=== PATIENT | male | born 1995 | race Caucasian/White ===

== ENCOUNTER 2019-07-04 08:15 | Inpatient (IN) ==
[2019-07-04] MEDS ORDERED: ALBUT/IPRATROP 3MG/0.5MG NEB 3 ML VIAL NEB ONE (08:28)
[2019-07-04] MEDS ORDERED: ACETAMINOPHEN 1,000 MG/100 ML VIAL IV STA (08:31)
[2019-07-04] MEDS ORDERED: ONDANSETRON INJ 2 MG/ML 2 ML VIAL IV STA (08:31)
[2019-07-04] MEDS ORDERED: SODIUM CHLORIDE 0.9% 1000ML 1,000 ML IV ONE (08:31)
[2019-07-04 08:43] LABS: Basophils # (auto) 0.01 K/uL (0-0.2); Basophils % (auto) 0.1 %; Eosinophils # (auto) 0.01 K/uL (0-0.5); Eosinophils % (auto) 0.1 %; Hemoglobin 13.5 g/dL (14.0-18.0); Immature Granulocytes # (auto) 0.02 K/uL (0.00-0.02); Immature Granulocytes % (auto) 0.3 %; Lymphocytes # (auto) 0.28 K/uL (1.2-3.4); Lymphocytes % (auto) 4.1 %; Mean Corpuscular Hgb Conc 34.6 g/dL (32-36); Mean Corpuscular Volume 86.7 fL (80-100); Mean Platelet Volume 9.3 fL (7.4-10.4); Monocytes # (auto) 0.32 K/uL (0.11-0.59); Monocytes % (auto) 4.7 %; Neutrophils # (auto) 6.13 K/uL (1.4-6.5); Neutrophils % (auto) 90.7 %; Platelet Count 204 K/uL (130-400); RDW Coefficient of Variation 12.8 % (11.5-14.5); RDW Standard Deviation 41.1 fL (36.4-46.3); White Blood Count 6.77 K/uL (4.8-10.8)
[2019-07-04 08:58] LABS: BUN Creatinine Ratio 7.6 (10-20); Calcium 8.9 mg/dl (8.5-10.1); Creatinine Clr Calc Pharmacy 127.6 ml/min; Est GFR (African American) 124.6; Est GFR (Non-African American) 107.5; Potassium 3.9 mmol/L (3.5-5.1)
[2019-07-04 09:01] LABS: Albumin Globulin Ratio 0.8 (0.9-2); Bilirubin,Total 0.4 mg/dl (0.2-1); Globulin 3.9 gm/dl (2.5-4.0); Total Protein 6.9 gm/dl (6.4-8.2)
--- NOTE | 2019-07-04 09:10 | Emergency Department Note ---
History of Present Illness General Chief complaint: Shortness of Breath/Dyspnea Stated complaint: TROUBLE BREATHING - WAS HERE YESTERDAY Time Seen by Provider: 07/04/19 08:23 History of Present Illness Maximum Pain Intensity: 4 This 24-year-old male presents the ER for increased shortness of breath. The patient was seen here yesterday and was diagnosed with pneumonia. He is currently taking doxycycline 100 mg twice daily as well as cefdinir 300 mg twice daily for the pneumonia. The patient is also using his albuterol inhaler 2 puffs every 4 hours but he states it is not helping for the shortness of breath. The patient's last dose of Motrin was last evening at 8 PM. The patient still complains of fever although he has not taken his temperature. The patient does admit to history of asthma as a child and as an adult has only needed to use his albuterol inhaler very infrequently. The patient denies tobacco use or vaping. Home Medications Home Medications Medication Instructions Recorded Confirmed Type fexofenadine [Marisol Allergy] 180 mg PO DAILY PRN #0 04/13/14 07/04/19 History acetaminophen [Tylenol Extra 1,000 mg PO Q6H PRN 07/03/19 07/04/19 History Strength] albuterol sulfate 2 puff INHALATION Q4H PRN 07/03/19 07/04/19 History azithromycin 250 mg PO Q12H 07/03/19 07/04/19 History cefdinir 300 mg PO BID 10 Days #20 cap 07/03/19 07/04/19 Rx doxycycline hyclate 100 mg PO BID 10 Days #20 tab 07/03/19 07/04/19 Rx ibuprofen 600 mg PO Q6H PRN 07/03/19 07/04/19 History sertraline 100 mg PO QAM 07/03/19 07/04/19 History Allergies Allergy/AdvReac Type Severity Reaction Status Date / Time animal dander Allergy Unknown . Verified 07/04/19 09:12 pollen extracts Allergy Unknown . Verified 07/04/19 09:12 Past Med/Surg History Medical History (Updated 07/04/19 @ 10:32 by Adriel Harding) Allergic rhinitis Allergy-induced asthma Depression H/O wisdom tooth extraction Mild intermittent asthma OCD (obsessive compulsive disorder) Pneumonia Surgical History (Updated 07/04/19 @ 09:57 by Adriel Harding) H/O adenoidectomy History of lumbar laminectomy age 12 - 2 levels Family History (Updated 07/04/19 @ 09:58 by Adriel Harding) Sister Asthma Father Osteoporosis Social History (Updated 07/04/19 @ 09:59 by Adriel Harding) Preferred Language: Czech Communication Ability: Effective 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 Beliefs That Will Affect Care: None marital status: Single marital status details: but has out of town significant other Current Living Situation: Alone Current Living Situation Comment: lives in apartment in [place] current occupation: Grad Student - [employer] Other Information That Helps Us Care for You: No Feels Safe at Home: Yes Safety Concerns: Feels Safe At This Time Smoking Status: Never smoker Do You Dip or Chew Tobacco: No ; Second Hand Exposure: No ; Tobacco Cessation Education Requested by Patient: No Hx Alcohol Use: No Hx Substance Use: No Review of Systems A total of 10 systems reviewed and were otherwise negative Physical Exam Vital Signs Vital Signs - 24 hr 07/04/19 08:19 07/04/19 08:47 07/04/19 08:50 Temperature 38.1 C H Temperature Source Oral Pulse Rate 130 H 119 H 120 H Pulse Rate from SpO2 Sensor 119 H 155 H Respiratory Rate 26 H 26 H 34 H Respiratory Effort / Characteristics Respiratory Depth Respiratory Pattern Blood Pressure 114/59 L 133/68 Blood Pressure Mean 77 75 Pulse Oximetry 94 94 94 Oxygen Delivery Method Room Air Sepsis Recent Fever Within 48 Hours Yes Sepsis New/Unexplained Change in Mental Status No Sepsis Action Taken by Nursing No Action Required 07/04/19 08:57 07/04/19 09:00 07/04/19 09:01 Temperature Temperature Source Pulse Rate 115 H 115 H Pulse Rate from SpO2 Sensor 115 H 114 H Respiratory Rate 17 11 L Respiratory Effort / Characteristics Non-Labored Spontaneous Respiratory Depth Normal Respiratory Pattern Regular Blood Pressure 116/69 Blood Pressure Mean 74 Pulse Oximetry 95 94 93 Oxygen Delivery Method Room Air Sepsis Recent Fever Within 48 Hours Sepsis New/Unexplained Change in Mental Status Sepsis Action Taken by Nursing 07/04/19 09:05 07/04/19 09:10 Temperature 38.6 C H Temperature Source Oral Pulse Rate Pulse Rate from SpO2 Sensor Respiratory Rate 20 Respiratory Effort / Characteristics Non-Labored Spontaneous Respiratory Depth Respiratory Pattern Blood Pressure Blood Pressure Mean Pulse Oximetry 92 Oxygen Delivery Method Room Air Sepsis Recent Fever Within 48 Hours Sepsis New/Unexplained Change in Mental Status Sepsis Action Taken by Nursing PHYSICAL EXAM: Vital Signs were reviewed: Reviewed Nurse's notes and agree. Oxygen saturation is 92 % on room air which is slightly low. GENERAL: 24-year-old male appears in no acute distress. MENTAL STATUS: Alert, oriented, coherent. EARS: Canals clear. TMs good light reflex, no erythema or fluid level noted. NOSE: Nasal mucosa with moderate erythema engorgement. PHARYNX: Moderate erythema, no edema noted. No exudate noted. Airway is adequate. NECK: Supple, non-tender. No lymphadenopathy noted. LUNGS: Patient has crackles at both bases but extends up to the mid left lung posteriorly. No wheezes noted. Good air exchange noted. SKIN: No rashes noted. Course Administered Medications Discontinued Medications Albuterol (Duoneb) 12 ml NEB ONE ONE Stop: 07/04/19 08:29 Last Admin: 07/04/19 09:05 Dose: 12 ml Documented by: [id number] Ceftriaxone Sodium (Rocephin) Confirm Administered Dose 2,000 mg IV .STK-MED ONE Stop: 07/04/19 10:34 Last Admin: 07/04/19 10:47 Dose: 2,000 mg Documented by: [id number] Sodium Chloride (Nss 1000ml) 1,000 mls @ 999 mls/hr IV .Q1H1M ONE Stop: 07/04/19 09:31 Last Infusion: 07/04/19 10:16 Dose: 0 mls/hr Documented by: [id number] Admin: 07/04/19 08:48 Dose: 999 mls/hr Documented by: [id number] Acetaminophen (Ofirmev) 1,000 mg in 100 mls @ 400 mls/hr IV NOW STA Stop: 07/04/19 08:45 Last Infusion: 07/04/19 10:16 Dose: 0 mls/hr Documented by: [id number] Admin: 07/04/19 08:49 Dose: 400 mls/hr Documented by: [id number] Methylprednisolone 60 mg/ (Syringe) 1.96 mls @ 1.5 mls/min IV NOW STA Stop: 07/04/19 09:18 Last Admin: 07/04/19 10:36 Dose: Not Given Documented by: [id number] Methylprednisolone (Solumedrol) Confirm Administered Dose 125 mg .ROUTE .STK-MED ONE Stop: 07/04/19 10:21 Last Admin: 07/04/19 10:24 Dose: 60 mg Documented by: [id number] Ondansetron HCl (Zofran) 4 mg IV NOW STA Stop: 07/04/19 08:32 Last Admin: 07/04/19 08:48 Dose: 4 mg Documented by: [id number] Medical Decision Making Differential Diagnosis Pneumonia, asthma exacerbation, sepsis Medical Records Attestation: I reviewed the patient's medical records. Home Medications Current Medication List: was personally reviewed by me Laboratory Data Attestation: I reviewed the patient's lab results. Result diagrams: 07/04/19 08:30 07/04/19 08:30 Lab Results 07/04/19 07/04/19 07/04/19 Range/Units 08:30 08:30 08:30 WBC 6.77 (4.8-10.8) K/uL RBC 4.50 L (4.7-6.1) M/uL Hgb 13.5 L (14.0-18.0) g/dL Hct 39.0 L (42-52) % MCV 86.7 (80-100) fL MCH 30.0 (25-34) pg MCHC 34.6 (32-36) g/dL RDW Std Deviation 41.1 (36.4-46.3) fL RDW Coeff of Stephanie 12.8 (11.5-14.5) % Plt Count 204 (130-400) K/uL MPV 9.3 (7.4-10.4) fL Immature Gran % (Auto) 0.3 % Neut % (Auto) 90.7 % Lymph % (Auto) 4.1 % [place] % (Auto) 4.7 % Eos % (Auto) 0.1 % Baso % (Auto) 0.1 % Immature Gran # (Auto) 0.02 (0.00-0.02) K/uL Neut # (Auto) 6.13 (1.4-6.5) K/uL Lymph # (Auto) 0.28 L (1.2-3.4) K/uL [place] # (Auto) 0.32 (0.11-0.59) K/uL Eos # (Auto) 0.01 (0-0.5) K/uL Baso # (Auto) 0.01 (0-0.2) K/uL Sodium 137 (136-145) mmol/L Potassium 3.9 (3.5-5.1) mmol/L Chloride 106 (98-107) mmol/L Carbon Dioxide 25 (21-32) mmol/L Anion Gap 6.0 (3-11) BUN 8 (7-18) mg/dl Creatinine 0.98 (0.6-1.4) mg/dl Est Cr Clr Drug Dosing 127.6 ml/min Est GFR ( Amer) 124.6 Est GFR (Non-Af Amer) 107.5 BUN/Creatinine Ratio 7.6 L (10-20) Glucose 164 H (70-99) mg/dl Lactate 1.9 (0.4-2.0) mmol/L Calcium 8.9 (8.5-10.1) mg/dl Total Bilirubin 0.4 (0.2-1) mg/dl AST 13 L (15-37) U/L ALT 20 (12-78) U/L Alkaline Phosphatase 78 (45-117) U/L Total Protein 6.9 (6.4-8.2) gm/dl Albumin 3.0 L (3.4-5.0) gm/dl Globulin 3.9 (2.5-4.0) gm/dl Albumin/Globulin Ratio 0.8 L (0.9-2) Imaging Data Attestation: I personally reviewed and interpreted this imaging study as follows: My Impression: Worsening bibasilar infiltrates Radiologist's Impression: XR chest 2V PA/lateral CLINICAL HISTORY: Increased shortness of breath/pneumonia dyspnea COMPARISON STUDY: 07/03/2019 FINDINGS: Diffuse parenchymal infiltrate left lung base. This is progressive. Subsegmental atelectasis right midlung, with right basilar infiltrate slightly increased as well. Pulmonary apices are clear. IMPRESSION: Mildly progressive bibasilar parenchymal infiltrative change. The above report was generated using voice recognition software. It may contain grammatical, syntax or spelling errors. Electronically signed by: Fabiano Elizondo M.D. 07/04/2019 10:53 AM Blood Pressure Blood Pressure Findings: Low blood pressure MDM Narrative The patient was evaluated. The patch EMR was reviewed from yesterday. Blood cultures are still pending. Influenza was negative. White count yesterday was 7.63 and lactate was 1.0. IV access was obtained. Patient was given 1 L normal saline wide open. He was given Tylenol 1 g IV for fever. He was also given Zofran 4 mg IV push for nausea. CBC and differential and renal profile and lactate was ordered. White count is slightly lower than yesterday at 6.77 and lactate is slightly higher at 1.9 but still within normal range. The patient was given 1 hour DuoNeb. Chest x-ray was ordered interpreted by the radiologist and myself as above. The patient was given Solu-Medrol 60 mg IV. Treatment plan was discussed with Dr. Cruz who agrees with treatment plan. The hospitalist was consulted for admission due to failed outpatient treatment for his pneumonia. Impression & Plan Pneumonia Discharge Plan Visit Data Chief Complaint: Shortness of Breath/Dyspnea Stated Complaint: TROUBLE BREATHING - WAS HERE YESTERDAY ED Provider: Alonzo Cruz ED Midlevel Provider: Katarzyna Elizondo Discharge Problem: Pneumonia Patient Disposition: Being Evaluated by Hospitalist Condition: Good Forms Stand Alone Forms: My [facility], Important Visit Information Prescriptions Prescriptions: No Action fexofenadine [Marisol Allergy] 180 mg Tablet 180 mg PO DAILY PRN (Reason: qam) Qty: 0 RF: 0 azithromycin 250 mg tablet 250 mg PO Q12H RF: 0 sertraline 100 mg tablet 100 mg PO QAM RF: 0 acetaminophen [Tylenol Extra Strength] 500 mg Tablet 1,000 mg PO Q6H PRN (Reason: fever/pain) RF: 0 ibuprofen 200 mg Tablet 600 mg PO Q6H PRN (Reason: fever/pain) RF: 0 albuterol sulfate 90 mcg/actuation HFA aerosol inhaler 2 puff INHALATION Q4H PRN (Reason: Shortness Of Breath) RF: 0 cefdinir 300 mg capsule 300 mg PO BID 10 Days Qty: 20 RF: 0 doxycycline hyclate 100 mg tablet 100 mg PO BID 10 Days Qty: 20 RF: 0 Referrals Referrals: [facility] [Primary Care Provider] - Discharge Problem: Pneumonia Qualifiers: Pneumonia type: due to unspecified organism Laterality: bilateral Lung location: lower lobe of lung Qualified Code(s): J18.1 - Lobar pneumonia, unspecified organism
[2019-07-04] MEDS ORDERED: methylPREDNISolone 60 MG in SYRINGE 1 ML IV STA (09:17)
--- NOTE | 2019-07-04 09:42 | History & Physical Report ---
Date of Service July 04, 2019 Assessment & Plan (1) Acute respiratory distress: 2nd to combination of b/l pneumonia and asthma exacerbation. Improved, s/p hour-long duoneb in the ER. Treat pneumonia with rocephin/doxycycline. Treat asthma flare with IV steroids, nebs, etc. (2) Asthma exacerbation: Mod-severe exacerbation. Solumedrol 40mg IV q8h. Incentive spirometry. Flutter valve. Duonebs q6h. Mucinex 1200mg BID. Check flu PCR to be complete (had flu Ag test yesterday but many false negatives with such). (3) Pneumonia: Community-acquired. B/l; however LLL is much worse than the RLL clinically & radiographically. Change antibiotics to Rocephin 2gm IV daily along with doxy 100mg BID for atypical coverage. Blood cx's from 07/03 negative thus far. Send sputum culture. Good pulmonary toilet. Treat asthma exacerbation. Observe carefully for development of parapneumonic effusion. (4) Allergic rhinitis: Marisol prn. (5) Depression: Cont zoloft 200mg daily. (6) OCD (obsessive compulsive disorder): Cont zoloft 200mg daily. (7) Hemoptysis: 1 episode in the ER - scant amount - maroon-colored. Combination of bronchial irritation from asthma flare and the pneumonia could cause such. Monitor for recurrence. (8) Hyperglycemia: Glucose of 164 upon presentation today. In light of obesity will check hemoglobin a1c in am. (9) DVT prophylaxis: Low risk. Chemical DVT proph deferred. Hydrate with NS w/ KCL overnight. Admit to telemetry due to tachycardia (which is most likely from albuterol). History of Present Illness Chief Complaint: shortness of breath Primary Care Provider: [facility] 24yo male with history of long-standing asthma and allergies who presented to [facility] ER this morning with c/o worsening shortness of breath that began overnight, chest tightness, some cough, orthopnea, and ongoing fevers dating back to Friday of this week. He took multiple puffs of his albuterol MDI overnight without any relief of his pulmonary symptoms. In addition to the fever he has also had URI type symptoms (runny nose, minimal cough, etc) along with chills since Friday. Appetite has been poor. He was seen at [facility] on Friday of this week, diagnosed with clinical pneumonia (no chest x-ray done), and he was prescribed a z-pack. He continued with tylenol and motrin alternating for ongoing fever. Despite the z-pack he never felt better. His fevers continued. Because of not feeling better he presented to the [facility] ER yesterday am. He had a chest x-ray yesterday am confirming b/l pneumonia. His z-pack was changed to cefdinir and doxycycline. Travel - about 2 weeks ago he went to [place]. Multiple sick contacts at [facility] (he attends a club and multiple members with URIs of late). To his knowledge he has never been hospitalized for his asthma. He has had no steroids this week for his asthma. Allergies Allergy/AdvReac Type Severity Reaction Status Date / Time animal dander Allergy Unknown . Verified 07/04/19 09:12 pollen extracts Allergy Unknown . Verified 07/04/19 09:12 Home Medications Home Medications Medication Instructions Recorded Confirmed Type fexofenadine [Marisol Allergy] 180 mg PO DAILY PRN #0 04/13/14 07/04/19 History acetaminophen [Tylenol Extra 1,000 mg PO Q6H PRN 07/03/19 07/04/19 History Strength] albuterol sulfate 2 puff INHALATION Q4H PRN 07/03/19 07/04/19 History azithromycin 250 mg PO Q12H 07/03/19 07/04/19 History cefdinir 300 mg PO BID 10 Days #20 cap 07/03/19 07/04/19 Rx doxycycline hyclate 100 mg PO BID 10 Days #20 tab 07/03/19 07/04/19 Rx ibuprofen 600 mg PO Q6H PRN 07/03/19 07/04/19 History sertraline 100 mg PO QAM 07/03/19 07/04/19 History Past Med/Surg History Medical History (Updated 07/04/19 @ 19:06 by Adriel Harding) Allergic rhinitis Allergy-induced asthma Depression H/O wisdom tooth extraction Mild intermittent asthma OCD (obsessive compulsive disorder) Pneumonia Surgical History (Updated 07/04/19 @ 09:57 by Adriel Harding) H/O adenoidectomy History of lumbar laminectomy age 12 - 2 levels Family History (Updated 07/04/19 @ 09:58 by Adriel Harding) Sister Asthma Father Osteoporosis Social History (Updated 07/04/19 @ 09:59 by Adriel Harding) Preferred Language: Czech Communication Ability: Effective 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 Beliefs That Will Affect Care: None marital status: Single marital status details: but has out of town significant other Current Living Situation: Alone Current Living Situation Comment: lives in apartment in [place] current occupation: Grad Student - Electrical engineering Other Information That Helps Us Care for You: No Feels Safe at Home: Yes Safety Concerns: Feels Safe At This Time Smoking Status: Never smoker Do You Dip or Chew Tobacco: No ; Second Hand Exposure: No ; Tobacco Cessation Education Requested by Patient: No Hx Alcohol Use: No Hx Substance Use: No Review of Systems Constitutional: + fever, + chills, + fatigue and + anorexia; no weight loss and no weight gain Eyes: no worsening vision Ear, Nose, Mouth, Throat: + dizziness, + nasal congestion and + sore throat Respiratory: + cough, + chest congestion, + dyspnea, + dyspnea on exertion, + sputum production and + wheezing Cardiovascular: as per Subjective / HPI, + dyspnea at rest and + dyspnea on exertion; no chest pain (but having tightness) Gastrointestinal: + nausea and + vomiting (x 48 hours); no abdominal pain and no diarrhea/loose stools Genitourinary: no dysuria Musculoskeletal: no joint pain and no myalgia Integumentary: no rash Neurologic: no loss of sensation Psychiatric: + depression (controlled with meds) Endocrine: no diabetes Hematologic / Lymphatic: no easy bleeding Allergy / Immunological: + seasonal rhinorrhea Physical Exam Constitutional: + acute distress (mild tachypnea, but can speak in complete sentences; occasional dyspnea) and + obese; no altered mental status Eyes: PERRL ENMT: Mouth: + oropharynx abnormality (mild erythema; no exudates) Neck: trachea midline, no thyromegaly Respiratory: + labored breathing (mild) and + tachypneic Auscultation: + diminished lung sounds (bases, worse on left), + rales (occasional - bases) and + wheezes (anteriorly) Cardiovascular: Rate/Rhythm: regular rhythm and + tachycardic Heart Sounds: normal S1 and normal S2; no murmur Vessels: posterior tibial pulses present and dorsalis pedis pulses present; no JVD Extremities: no edema Gastrointestinal (Abdomen): normal bowel sounds, soft, nontender, no hepatosplenomegaly Musculoskeletal: no cyanosis or clubbing, extremities motor strength 5/5 Skin: no rashes, warm and dry Neurologic: deep tendon reflexes 2+ bilaterally and moves all extremities; no focal motor deficits Psychiatric: A+Ox3, euthymic affect Lymphatic: + cervical lymphadenopathy (shotty lymph nodes b/l ) Results & Data Vital Signs (Past 12 Hours) Vital Signs Temp Pulse Resp BP Pulse Ox 07/04/19 09:10 38.6 C H 07/04/19 09:05 20 92 07/04/19 09:01 115 H 11 L 93 07/04/19 09:00 115 H 17 116/69 94 07/04/19 08:57 95 07/04/19 08:50 120 H 34 H 94 07/04/19 08:47 119 H 26 H 133/68 94 07/04/19 08:19 38.1 C H 130 H 26 H 114/59 L 94 Laboratory Results Laboratory Results - last 24 hr 07/04/19 07/04/19 07/04/19 08:30 08:30 08:30 WBC 6.77 RBC 4.50 L Hgb 13.5 L Hct 39.0 L MCV 86.7 MCH 30.0 MCHC 34.6 RDW Std Deviation 41.1 RDW Coeff of Stephanie 12.8 Plt Count 204 MPV 9.3 Immature Gran % (Auto) 0.3 Neut % (Auto) 90.7 Lymph % (Auto) 4.1 [place] % (Auto) 4.7 Eos % (Auto) 0.1 Baso % (Auto) 0.1 Immature Gran # (Auto) 0.02 Neut # (Auto) 6.13 Lymph # (Auto) 0.28 L [place] # (Auto) 0.32 Eos # (Auto) 0.01 Baso # (Auto) 0.01 Sodium 137 Potassium 3.9 Chloride 106 Carbon Dioxide 25 Anion Gap 6.0 BUN 8 Creatinine 0.98 Est Cr Clr Drug Dosing 127.6 Est GFR ( Amer) 124.6 Est GFR (Non-Af Amer) 107.5 BUN/Creatinine Ratio 7.6 L Glucose 164 H Lactate 1.9 Calcium 8.9 Total Bilirubin 0.4 AST 13 L ALT 20 Alkaline Phosphatase 78 Total Protein 6.9 Albumin 3.0 L Globulin 3.9 Albumin/Globulin Ratio 0.8 L Diagnostic Findings blood cx's from 07/03/19 negative to date EKG - sinus tach, no ST changes cxr - 07/03 - b/l pneumonia (RLL, LLL) Code Status & VTE Plan Code Status full VTE Prophylaxis Plan VTE Prophylaxis will be ordered: No PG Care Time/CCT Total # of Minutes Spent Total Time Spent with Patient: Total time spent is greater than 50% in coordination of care (as documented) at patient's floor/unit and/or counseling patient: (1) Asthma exacerbation Asthma persistence: intermittent Asthma severity: mild Qualified Code(s): J45.21 - Mild intermittent asthma with (acute) exacerbation (2) Depression Depression Type: other depression Qualified Code(s): F32.89 - Other specified depressive episodes (3) OCD (obsessive compulsive disorder) Obsessive-compulsive disorder type: unspecified Qualified Code(s): F42.9 - Obsessive-compulsive disorder, unspecified (4) Allergic rhinitis Allergic rhinitis seasonality: seasonal Allergic rhinitis trigger: other Qualified Code(s): J30.89 - Other allergic rhinitis (5) Pneumonia Laterality: bilateral Lung location: lower lobe of lung Pneumonia type: due to unspecified organism Qualified Code(s): J18.1 - Lobar pneumonia, unspecified organism
[2019-07-04] MEDS ORDERED: methylPREDNISolone 125 MG/2 ML VIAL ONE (10:20)
[2019-07-04] MEDS ORDERED: cefTRIAXone SODIUM 2,000 MG/70 ML BAG IV STA (10:20)
[2019-07-04] MEDS ORDERED: NON-FORMULARY MEDICATION (Doxycycline Hyclate 100 MG) PO SCH (10:30)
[2019-07-04] MEDS ORDERED: cefTRIAXone SODIUM 2000MG/70ML D5W IV ONE (10:33)
--- NOTE | 2019-07-04 10:56 | XRay Report ---
XR chest 2V PA/lateral CLINICAL HISTORY: Increased shortness of breath/pneumonia dyspnea COMPARISON STUDY: 07/03/2019 FINDINGS: Diffuse parenchymal infiltrate left lung base. This is progressive. Subsegmental atelectasis right midlung, with right basilar infiltrate slightly increased as well. Pul monary apices are clear. IMPRESSION: Mildly progressive bibasilar parenchymal infiltrative change. The above report was generated using voice recognition software. It may contain grammatical, syntax or spelling errors. Electronically signed by: Fabiano Elizondo M.D. 07/04/2019 10:53 AM
[2019-07-04 11:37] LABS: Influenza A virus by PCR Neg for Influ A (Neg); Influenza B virus by PCR Neg for Influ B (Neg)
[2019-07-04] MEDS ORDERED: ONDANSETRON INJ 2 MG/ML 2 ML VIAL IV PRN (12:10)
[2019-07-04] MEDS ORDERED: ALBUTEROL HFA 8 GM INHALER INH PRN (12:10)
[2019-07-04] MEDS ORDERED: ACETAMINOPHEN 500 MG TAB PO PRN (12:10)
[2019-07-04] MEDS ORDERED: FEXOFENADINE HCL 180 MG TAB PO PRN (12:10)
[2019-07-04] MEDS ORDERED: SERTRALINE HCL 100 MG TABLET PO SCH (12:10)
[2019-07-04] MEDS ORDERED: NSS + 20MEQ KCL 20 MEQ/1,000 ML BAG IV SCH (13:00)
[2019-07-04] MEDS: DOXYCYCLINE HYCLATE 100 MG CAP PO SCH ×2 (14:02→20:15)
[2019-07-04] MEDS: guaiFENesin 600 MG TABCR PO SCH ×2 (14:02→20:15)
[2019-07-04] MEDS ORDERED: Nursing to Pharmacy Communication ONE (14:40)
[2019-07-04] MEDS: ALBUT/IPRATROP 3MG/0.5MG NEB 3 ML VIAL NEB SCH ×3 (15:17→20:18)
[2019-07-04] MEDS: methylPREDNISolone 40 MG in SYRINGE 0 ML IV SCH (16:40)
[2019-07-05] MEDS: methylPREDNISolone 40 MG in SYRINGE 0 ML IV SCH ×2 (00:04→07:40)
[2019-07-05 07:16] LABS: BUN Creatinine Ratio 12.8 (10-20); Blood Urea Nitrogen 9 mg/dl (7-18); Calcium 9.3 mg/dl (8.5-10.1); Carbon Dioxide 26 mmol/L (21-32); Chloride 108 mmol/L (98-107); Creatinine Clr Calc Pharmacy 172.1 ml/min; Est GFR (African American) > 150.0; Est GFR (Non-African American) 129.8; Glucose 133 mg/dl (70-99); Potassium 4.2 mmol/L (3.5-5.1); Sodium 139 mmol/L (136-145)
[2019-07-05] MEDS: ALBUT/IPRATROP 3MG/0.5MG NEB 3 ML VIAL NEB SCH ×2 (07:33→10:58)
[2019-07-05] MEDS: DOXYCYCLINE HYCLATE 100 MG CAP PO SCH (07:40)
[2019-07-05] MEDS: guaiFENesin 600 MG TABCR PO SCH (07:40)
[2019-07-05 08:11] LABS: Estimated Average Glucose 108 mg/dl; Hemoglobin A1C 5.4 % (4.5-5.6)
[2019-07-05] MEDS ORDERED: cefTRIAXone SODIUM 2,000 MG in DEXTROSE 5% 50 ML IV SCH (09:00)
[2019-07-05] MEDS ORDERED: SERTRALINE HCL 100 MG TABLET PO SCH (09:00)
--- NOTE | 2019-07-05 10:14 | Discharge Summary ---
Date of Service July 05, 2019 Admission HPI Per Admitting Provider 24yo male with history of long-standing asthma and allergies who presented to [facility] ER this morning with c/o worsening shortness of breath that began overnight, chest tightness, some cough, orthopnea, and ongoing fevers dating back to Friday of this week. He took multiple puffs of his albuterol MDI overnight without any relief of his pulmonary symptoms. In addition to the fever he has also had URI type symptoms (runny nose, minimal cough, etc) along with chills since Friday. Appetite has been poor. He was seen at [facility] on Friday of this week, diagnosed with clinical pneumonia (no chest x-ray done), and he was prescribed a z-pack. He continued with tylenol and motrin alternating for ongoing fever. Despite the z-pack he never felt better. His fevers continued. Because of not feeling better he presented to the [facility] ER yesterday am. He had a chest x-ray yesterday am confirming b/l pneumonia. His z-pack was changed to cefdinir and doxycycline. Travel - about 2 weeks ago he went to [place]. Multiple sick contacts at [facility] (he attends a club and multiple members with URIs of late). To his knowledge he has never been hospitalized for his asthma. He has had no steroids this week for his asthma. Principal Diagnosis Community acquired pneumonia Discharge Exam Constitutional WD/WN, vitals as above Eyes PERRL, conjunctivae normal, anicteric sclerae ENMT external ear and nose normal, oropharynx normal Neck trachea midline, no thyromegaly Respiratory normal respiratory effort, lungs clear to auscultation Cardiovascular RRR, no murmur, no edema Gastrointestinal (Abdomen) normal bowel sounds, soft, nontender, no hepatosplenomegaly Musculoskeletal no cyanosis or clubbing, extremities motor strength 5/5 Skin no rashes, warm and dry Neurologic patellar DTR's 2+ bilat, sensation intact and PERRL, EOMI, accommodation nl, no face palsy, no dysarthria Psychiatric A+Ox3, euthymic affect Lymphatic no cervical or axillary lymphadenopathy Discharge Data Allergies Allergy/AdvReac Type Severity Reaction Status Date / Time animal dander Allergy Unknown . Verified 07/04/19 09:12 pollen extracts Allergy Unknown . Verified 07/04/19 09:12 Consultations 07/04/19 09:25 ED Decision to Admit Stat Hospital Course (1) Acute respiratory distress: 2nd to combination of b/l pneumonia and asthma exacerbation. Improved, s/p hour-long duoneb in the ER. Treated pneumonia with rocephin/doxycycline. Treated asthma flare with IV steroids, nebulizer treatments titrated off of oxygen quickly, breathing comfortably at time of discharge finish brief course of Prednisone and Cefdinir/Doxycyline (2) Asthma exacerbation: Mod-severe exacerbation. Solumedrol 40mg IV q8h. Incentive spirometry. Flutter valve. Duonebs q6h. Mucinex 1200mg BID. much improved, no wheezing on exam finish 7 days of Prednisone 40mg provided with nebulizer with Duoneb prescription (3) Pneumonia: Community-acquired. B/l; however LLL is much worse than the RLL clinically & radiographically. Rocephin 2gm IV daily along with doxy 100mg BID for atypical coverage. Blood cx's from 07/03 negative no fever, WBC normal, minimal cough complete a total of 7 days of antibiotics, send home on Cefdinir and Doxycycline (4) Allergic rhinitis: Marisol prn. (5) Depression: Cont zoloft 200mg daily. (6) OCD (obsessive compulsive disorder): Cont zoloft 200mg daily. (7) Hemoptysis: 1 episode in the ER - scant amount - maroon-colored. Combination of bronchial irritation from asthma flare and the pneumonia could cause such. no further episodes Total Time Total Time Spent Total Time Spent (In Minutes): 36 minutes Total Time Includes: Examination of the Patient, Discharge Planning and Medication Reconciliation Discharge Plan Discharge Items Patient Disposition: Home - Self-Care Reason For Visit: B/L PNEUMONIA,ASTHMA EXACERBATION Discharge Diagnosis: Bilateral pneumonia Asthma exacerbation Dehydration Condition on Discharge: Good Goals: complete course of antibiotics and steroids Activity: Resume your previous activity Non-emergency contact: Primary Care Provider Call non-emergency contact if: you have any medication questions, your symptoms worsen and you have a fever Follow-up/Referrals: [facility] [Primary Care Provider] - 07/12/19 11:00 am (Please, follow up at [facility], on the [facility], with Dr. Christ Estrada on FridayJuly 12 at 11:00 am. *If you need to change this appointment, call the office at [phone].) Diet: Regular Addtl Attending Provider Instructions: Medications: - PREDNISONE: take 40mg daily for 5 more days, no need to taper - DUONEB: use with nebulizer as needed for any wheezing or shortness of breath over the next week - CEFDINIR and DOXYCYCLINE: complete as prescribed, you can stop after 5 more days, so last day would be 07/10, next doses due this evening Pneumonia and asthma exacerbation responded well to steroids, IV antibiotics and nebulizers breathing well on room air today, lungs are clear and no wheezing need to complete 5 more days of treatment okay to resume normal activities, may notice some increased shortness of breath with activity but that will resolve in a week FOLLOW UP - recommend following up with [facility] in one week, after Thanksgiving break Pending Studies at Discharge: No Stand-Alone Forms: My [facility] [employer], Smoking Cessation Medications and DC Order Prescriptions: New ipratropium-albuterol 0.5 mg-3 mg(2.5 mg base)/3 mL Solution For Nebulization 3 ml NEB QIDR PRN (Reason: shortness of breath or wheezing) 7 Days Qty: 15 RF: 3 prednisone 20 mg tablet 40 mg PO DAILY 5 Days Qty: 10 RF: 0 Continued fexofenadine [Marisol Allergy] 180 mg Tablet 180 mg PO DAILY PRN (Reason: qam) Qty: 0 RF: 0 sertraline 100 mg tablet 100 mg PO QAM RF: 0 acetaminophen [Tylenol Extra Strength] 500 mg Tablet 1,000 mg PO Q6H PRN (Reason: fever/pain) RF: 0 ibuprofen 200 mg Tablet 600 mg PO Q6H PRN (Reason: fever/pain) RF: 0 albuterol sulfate 90 mcg/actuation HFA aerosol inhaler 2 puff INHALATION Q4H PRN (Reason: Shortness Of Breath) RF: 0 cefdinir 300 mg capsule 300 mg PO BID 10 Days Qty: 20 RF: 0 doxycycline hyclate 100 mg tablet 100 mg PO BID 10 Days Qty: 20 RF: 0 Discontinued azithromycin 250 mg tablet 250 mg PO Q12H RF: 0 Discharge Orders: Discharge Order (Routine); Ordered 07/05/19 Ordered By: John Perez Admission Data Admit Date/Time: 07/04/19 10:27 Attending Provider: John Perez Admit Provider: Adriel Harding Primary Care Provider: [place] Other Providers: Adriel Harding Other Interventions: Discharge Summary Assessment (RN) Last Done: 07/05/19 10:18 DC Date/Time DO NOT enter until pt leaves facility: 07/05/19 12:42
== END 2019-07-05 12:42 | disposition home or self-care (01) | DRG 194 ==
LOC: ED 08:15 → SUATTDRO 10:27 → 2N 10:27